=== PATIENT | male | born 1950 | race Two or more races ===

== ENCOUNTER 2019-03-01 13:16 | Inpatient (IN) | payer MEDICARE, MEDICAID, OTHER | END 2019-03-04 16:31 | disposition home or self-care (01) | LOC: ER 13:16 → TELE 14:52 → CENTRAL 21:18 | DX: A41.9 Sepsis, unspecified organism (principal); G93.41 Metabolic encephalopathy; J69.0 Pneumonitis due to inhalation of food and vomit; F03.90 Unspecified dementia, unspecified severity, without behavioral disturbance, psychotic disturbance, mood disturbance, and anxiety; M47.9 Spondylosis, unspecified; E86.0 Dehydration ==